=== PATIENT | male | born 1970 | race Hispanic/Latino ===

== ENCOUNTER 2024-09-22 09:53 | Emergency (ER) | payer BC ==
[2024-09-22 10:19] LABS: Absolute Eosinophils 0.2 K/uL (0-0.5); Absolute Lymphocytes (CBC) 1.7 K/uL (0.7-4.9); Absolute Monocytes 0.5 K/uL (0.1-1.3); Basophils % 0.5 % (0-1.3); Eosinophils % 3.2 % (0-4.4); Hematocrit 45.8 % (39.6-49.0); Hemoglobin 15.3 g/dL (13.6-17.9); Lymphocytes % 23.1 % (15.3-44.8); MCH 29.4 pg (27.0-35.0); MCHC 33.5 g/dL (32.0-36.0); MPV 9.8 fL (7.6-11.3); Monocytes % 6.2 % (3.3-12.3); Platelets 184 thou/uL (152-406); RBC Red Blood Cell Count 5.21 M/uL (4.33-5.43); Red Cell Distribution Width 13.8 % (12.1-15.2)
[2024-09-22 10:21] LABS: PT Prothrombin Time 13.2 SECONDS (9.4-12.5); Protime INR 1.26
[2024-09-22 10:34] LABS: Albumin 3.5 g/dL (3.4-5.0); Albumin/Globulin Ratio 0.9 (1.1-1.8); Anion Gap 12.1 mEq/L (5.0-15.0); Bilirubin Direct 0.2 mg/dL (0-0.2); Bilirubin Indirect, Calculated 0.3 mg/dL (0.2-0.8); Bilirubin Total 0.5 mg/dL (0.2-1.0); Globulin 3.8 g/dL (2.3-3.5); Potassium 4.1 mEq/L (3.5-5.1); Protein, Total 7.3 g/dL (6.4-8.2); Troponin High Sensitivity 18.7 pg/mL (<58.9)
[2024-09-22] MEDS ORDERED: ASPIRIN 81 MG CHEWABLE TABLET ONE (10:55)
--- NOTE | 2024-09-22 11:29 | RAD REPORT ---
EXAMINATION: ONE VIEW CHEST XR CLINICAL INDICATION: Male, 54 years old.,CHEST PAIN TECHNIQUE: Frontal chest projection is submitted. Examination is limited by patient positioning and t echnique. COMPARISON: No prior exam. FINDINGS: The lungs are well inflated and clear. No pneumothorax or sizable effusion. The heart is upper limit of normal in size. Mediastinal contours are within normal, with changes of prior CABG. IMPRESSION: No acute pulmonary abnormalities. Upper limit of normal size of the heart, with changes of prior CABG .
--- NOTE | 2024-09-22 13:18 | ER ---
Nurse's Notes [facility] Name: Brain Villavicencio Age: 54 yrs Sex: Male : 1970 Arrival Date: 09/22/2024 Time: 09:53 Bed 8 Private MD: Diagnosis: Chest pain, unspecified Presentation: 09/22 09:58 Coronavirus screen: At this time, the client does not indicate any symptoms associated aa5 with coronavirus-19. Ebola Screen: Patient denies travel to an Ebola-affected area in the 21 days before illness onset. Initial Sepsis Screen: Does the patient meet any 2 criteria? No. Patient's initial sepsis screen is negative. Does the patient have a suspected source of infection? No. Patient's initial sepsis screen is negative. Risk Assessment: Do you want to hurt yourself or someone else? Patient reports no desire to harm self or others. Onset of symptoms was September 21, 2024. 09:58 Acuity: JOSEFINA 2 aa5 09:58 Method Of Arrival: Wheelchair aa5 09:58 Chief complaint: Patient states: mid-sternal chest pain that began last night, aa5 describes as numbing pain. Historical: - Allergies: 10:00 No Known Allergies; aa5 - PMHx: 10:00 Diabetes mellitus; aa5 - PSHx: 10:00 CABG 2022; heart stents; aa5 - Immunization history:: Adult Immunizations unknown. - Infectious Disease History:: Denies. - Social history:: Smoking status: Patient denies any tobacco usage or history of. - Family history:: not pertinent. - Hospitalizations: : No recent hospitalization is reported. Screenin:00 [facility] ED Fall Risk Assessment (Adult) History of falling in the last 3 months, aa5 including since admission No falls in past 3 months (0 pts) Confusion or Disorientation No (0 pts) Intoxicated or Sedated No (0 pts) Impaired Gait No (0 pts) Mobility Assist Device Used No (0 pt) Altered Elimination No (0 pt) Score/Fall Risk Level 0 - 2 = Low Risk Oriented to surroundings, Maintained a safe environment, Educated pt \\T\\ family on fall prevention, incl call for assistance when getting out of bed. Abuse screen: Denies threats or abuse. Nutritional screening: No deficits noted. Tuberculosis screening: No symptoms or risk factors identified. Assessment: 09:58 General: Appears uncomfortable, Behavior is calm, cooperative. Pain: Complains of pain aa5 in mid-sternal area Pain does not radiate. Pain currently is 7 out of 10 on a pain scale. Quality of pain is described as numb, Pain began "last night" Is continuous. Neuro: Level of Consciousness is awake, alert, obeys commands, Oriented to person, place, time, situation. Cardiovascular: Reports chest pain, Denies diaphoresis, fatigue, lightheadedness, nausea, palpitations, shortness of breath, syncope, vomiting, Heart tones S1 S2 present Rhythm is regular. Respiratory: Airway is patent Respiratory effort is even, unlabored, Respiratory pattern is regular, symmetrical, Denies cough, shortness of breath. GI: Abdomen is round non-distended, Patient currently denies diarrhea, intolerance of fluids, intolerance of food, nausea, vomiting. : No signs and/or symptoms were reported regarding the genitourinary system. EENT: No signs and/or symptoms were reported regarding the EENT system. Derm: Skin is pink, warm \\T\\ dry. Musculoskeletal: Range of motion: intact in all extremities. 10:50 Reassessment: MD at bedside . aa5 10:59 Reassessment: Patient is alert, oriented x 3, equal unlabored respirations, skin aa5 warm/dry/pink. Pt notified of wait time for repeat troponin, pt verbalized understanding. . 12:10 Reassessment: Patient is alert, oriented x 3, equal unlabored respirations, skin aa5 warm/dry/pink. Repeat troponin was sent to lab . 13:03 Reassessment: Patient is alert, oriented x 3, equal unlabored respirations, skin aa5 warm/dry/pink. Patient denies pain at this time. Patient states feeling better. 13:46 Reassessment: Patient is alert, oriented x 3, equal unlabored respirations, skin aa5 warm/dry/pink. Patient denies pain at this time. Patient states feeling better. 16:39 Reassessment: Patient is alert, oriented x 3, equal unlabored respirations, skin aa5 warm/dry/pink. Patient denies pain at this time. Pt sitting up in bed watching TV . 18:50 Reassessment: Patient is alert, oriented x 3, equal unlabored respirations, skin aa5 warm/dry/pink. Vital Signs: 09:58 BP 158 / 94; Pulse 66; Resp 19 S; Temp 97.6(TE); Pulse Ox 98% on R/A; Weight 87.54 kg aa5 (R); Height 5 ft. 6 in. (R); Pain 7/10; 10:58 BP 142 / 95; Pulse 85; Resp 16 S; Pulse Ox 98% on R/A; aa5 13:46 BP 136 / 85; Pulse 61; Resp 18 S; Pulse Ox 100% on R/A; aa5 16:39 BP 127 / 84; Pulse 59; Resp 18 S; Pulse Ox 100% on R/A; aa5 17:30 BP 143 / 90; Pulse 56; Resp 16 S; Pulse Ox 99% on R/A; aa5 18:15 BP 144 / 87; Pulse 55; Resp 16 S; Temp 97.5(TE); Pulse Ox 98% on R/A; aa5 09:58 Body Mass Index 31.15 (87.54 kg, 167.64 cm) aa5 09:58 Pain Scale: Adult aa5 ED Course: 09:57 Patient arrived in ED. al6 09:58 Kiersten Perez, RN is Primary Nurse. aa5 09:58 Arm band placed on. aa5 09:58 Patient has correct armband on for positive identification. Placed in gown. Bed in low aa5 position. Call light in reach. Side rails up X 1. Client placed on continuous cardiac and pulse oximetry monitoring. NIBP monitoring applied. cafeteria monitor on. Pulse ox on. NIBP on. 10:00 Chip Diggs MD is Attending Physician. rn 10:03 EKG done, by ED staff, reviewed by Chip Diggs MD. aa5 10:07 Initial lab(s) drawn, by me, sent to lab. Inserted saline lock: 18 gauge in right aa5 antecubital area, using aseptic technique. Blood collected. Flushed with 10 mL NS. 10:09 Triage completed. aa5 10:40 XRAY Chest (1 view) In Process Unspecified. EDMS 10:53 No provider procedures requiring assistance completed. Patient maintains SpO2 aa5 saturation greater than 95% on room air. 12:06 Troponin High Sensitivity: Repeat at 1207 Sent. ko1 12:06 Repeat lab(s) drawn. by me, sent to lab. ko1 13:03 EKG done, by ED staff, reviewed by Chip Diggs MD. aa5 13:20 Ubaldo Fisher is Hospitalizing Provider. rn 18:50 IV discontinued, intact, bleeding controlled, No redness/swelling at site. Pressure aa5 dressing applied. Administered Medications: 10:58 Drug: Aspirin PO Chewable Tablet 324 mg PO once; 81 mg tablets x 4 Route: PO; aa5 13:11 Follow up: Response: No adverse reaction aa5 Medication: 10:52 VIS not applicable for this client. aa5 Outcome: 13:17 Discharge ordered by MD. rn 13:21 Decision to Hospitalize by Provider. rn 17:00 Admitted to aa5 17:00 Condition: stable 17:00 Instructed on the need for admit, 18:52 Patient left the ED. aa5 Signatures: Dispatcher [employer] EDMS Chip Diggs MD MD rn Calderon, Audri RN RN aa5 Kim Sinclair RN RN ko1 Essence Hernandez6 Corrections: (The following items were deleted from the chart) 13:50 13:46 Pulse 61bpm; Resp 18bpm; Spontaneous; Pulse Ox 100% RA; aa5 aa5 19:05 18:59 IV discontinued, intact, bleeding controlled, No redness/swelling at site. aa5 Pressure dressing applied, aa5 19:18 17:00 Admitted to ER Hold. Please see [facility] for further documentation. aa5 aa5
--- NOTE | 2024-09-22 13:18 | EDPHYS ---
Physician Documentation [facility] Name: Brain Villavicencio Age: 54 yrs Sex: Male : 1970 Arrival Date: 09/22/2024 Time: 09:53 Bed 8 Private MD: ED Physician Chip Diggs HPI: 09/22 10:40 This 54 yrs old Male presents to ER via Wheelchair with complaints of Chest rn Pain. 10:40 The patient or guardian reports chest pain that is located primarily in the substernal rn area. Onset: this morning. The pain does not radiate. Associated signs and symptoms: Pertinent negatives: diaphoresis, palpitations, shortness of breath, syncope, vomiting. The chest pain is described as aching. Duration: The patient or guardian reports multiple episodes, that are intermittent. Duration: The patient or guardian reports multiple episodes, the episodes last approximately 3 minute(s). Modifying factors: The symptoms are alleviated by nothing. the symptoms are aggravated by exertion. Severity of pain: At its worst the pain was mild in the emergency department the pain has improved. The patient has experienced similar episodes in the past. Patient reports substernal chest discomfort and tingling sensation that began this morning while at work and he was walking. Patient states had a CABG in 2022 and has had stents before. States previously when required stents he had similar sensations but are lasting longer now and more frequent. No fever or chills. No cough. No shortness of breath. Not associated with diaphoresis or radiation. No abdominal pain or vomiting. Historical: - Allergies: 10:00 No Known Allergies; aa5 - PMHx: 10:00 Diabetes mellitus; aa5 - PSHx: 10:00 CABG 2022; heart stents; aa5 - Immunization history:: Adult Immunizations unknown. - Infectious Disease History:: Denies. - Social history:: Smoking status: Patient denies any tobacco usage or history of. - Family history:: not pertinent. - Hospitalizations: : No recent hospitalization is reported. ROS: 10:40 Constitutional: Negative for fever, chills, and weight loss, Cardiovascular: Positive rn for chest pain Respiratory: Negative for shortness of breath, cough, wheezing, and pleuritic chest pain, Abdomen/GI: Negative for abdominal pain, nausea, vomiting, diarrhea, and constipation, MS/Extremity: Negative for injury and deformity, Skin: Negative for injury, rash, and discoloration, Neuro: Negative for headache, weakness, numbness, tingling, and seizure, Exam: 10:40 Constitutional: This is a well developed, well nourished patient who is awake, alert, rn and in no acute distress. Cardiovascular: Regular rate and rhythm. No pulse deficits. Respiratory: No increased work of breathing, no retractions or nasal flaring. Abdomen/GI: Soft, non-tender MS/ Extremity: Pulses equal, no cyanosis Neuro: Awake and alert, GCS 15 12:06 ECG was reviewed by the Attending Physician. rn Vital Signs: 09:58 BP 158 / 94; Pulse 66; Resp 19 S; Temp 97.6(TE); Pulse Ox 98% on R/A; Weight 87.54 kg aa5 (R); Height 5 ft. 6 in. (R); Pain 7/10; 10:58 BP 142 / 95; Pulse 85; Resp 16 S; Pulse Ox 98% on R/A; aa5 13:46 BP 136 / 85; Pulse 61; Resp 18 S; Pulse Ox 100% on R/A; aa5 16:39 BP 127 / 84; Pulse 59; Resp 18 S; Pulse Ox 100% on R/A; aa5 17:30 BP 143 / 90; Pulse 56; Resp 16 S; Pulse Ox 99% on R/A; aa5 18:15 BP 144 / 87; Pulse 55; Resp 16 S; Temp 97.5(TE); Pulse Ox 98% on R/A; aa5 09:58 Body Mass Index 31.15 (87.54 kg, 167.64 cm) aa5 09:58 Pain Scale: Adult aa5 MDM: 10:00 Medical Screening Exam initiated rn 10:51 ED course: Troponin negative, no ST elevation on ECG. Recommended admission for industrial design intern evaluation given CABG and multiple stents in the past, patient declines, wants to be discharged as he wants to see his quarter doper in [place]. Patient understands risk of leaving without full Cardiologic evaluation, he plans on driving to [facility]. I did convince him however to get me a repeat troponin and repeat EKG.. 13:15 Differential diagnosis: acute myocardial infarction, acute pericarditis, anxiety, rn coronary artery disease chest wall pain, costochondritis, pleurisy, pneumothorax, stable angina, unstable angina. The patient was given aspirin in the Emergency Department. Data reviewed: vital signs, nurses notes, lab test result(s), EKG, radiologic studies, plain films, and as a result, I will admit patient. Consideration of Admission/Observation Escalation of care including admission/observation considered. Refusal of service: The patient/guardian displays adequate decision making capability and despite a detailed discussion of alternatives, benefits, risks, and consequences refuses: Admission to the hospital for further work-up and treatment. ED course: Repeat troponin negative. ECG still shows T wave inversions in 1 and aVL. Had a long talk with patient once again and he still declines admission. [place] doper asked him if he could make it down there. Patient called his nephew and is planning on driving there when discharged. Understands that this is risky and could have a cardiac event. Patient states "I will charles".. 13:19 ED course: Patient spoke with his family member and they have urged him to stay for rn evaluation. Will switch from discharge to admission now.. 09/22 10:01 Order name: Basic Metabolic Panel; Complete Time: 10:37 rn 09/22 10:01 Order name: CBC with Diff; Complete Time: 10: rn 09/22 10:01 Order name: LFT's; Complete Time: 10: rn 09/22 10:01 Order name: NT PRO-BNP; Complete Time: 10:37 rn 09/22 10:01 Order name: PT-INR; Complete Time: 10:37 rn 09/22 10:01 Order name: Troponin HS; Complete Time: 10: rn 09/22 10:51 Order name: Troponin High Sensitivity: Repeat at 1207; Complete Time: 12:36 aa5 09/22 14:58 Order name: Troponin High Sensitivity; Complete Time: 17:48 EDMS 09/22 17:30 Order name: Hemoglobin A1c EDDC 09/22 10:01 Order name: XRAY Chest (1 view); Complete Time: 11:35 rn 09/22 10:01 Order name: EKG; Complete Time: 10: rn 09/22 14:58 Order name: EKG Electrocardiogram EDDC 09/22 17:50 Order name: EKG Electrocardiogram EDDC 09/22 10:01 Order name: Cardiac monitoring; Complete Time: 10: rn 09/22 10:01 Order name: EKG - Nurse/Tech; Complete Time: 10: rn 09/22 10:01 Order name: IV Saline Lock; Complete Time: 10: rn 09/22 10:01 Order name: Labs collected and sent; Complete Time: 10: rn 09/22 10:01 Order name: O2 Per Protocol; Complete Time: 10: rn 09/22 10:01 Order name: O2 Sat Monitoring; Complete Time: 10: rn 09/22 13:11 Order name: EKG - Nurse/Tech: repeat, VO at 1255 ; Complete Time: 13:11 aa5 EC:06 Rate is 68 beats/min. Rhythm is regular. QRS [place] is Normal. [place] interval is normal. QRS rn interval is normal. QT interval is normal. No Q waves. T waves are Inverted in leads I, aVL. No ST changes noted. Clinical impression: NSR w/ Non-specific ST/T Changes. Interpreted by me. Reviewed by me. 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 Chip Diggs MD MD rn Calderon, Audri, RN RN aa5 Corrections: (The following items were deleted from the chart) 10: 10:01 BASIC METABOLIC PANEL+C.LAB.BRZ ordered. EDMS EDMS 10:01 10:01 CBC+H.LAB.BRZ ordered. EDMS EDMS 10:01 10:01 HEPATIC FUNCTION+C.LAB.BRZ ordered. EDMS EDMS 10:01 10:01 PROBNP+C.LAB.BRZ ordered. EDMS EDMS 10:01 10:01 PROTIME (+INR)+COAG.LAB.BRZ ordered. EDMS EDMS 10:01 10:01 Troponin High Sensitivity+C.LAB.BRZ ordered. EDMS EDMS 10:52 10:52 Troponin High Sensitivity+C.LAB.BRZ ordered. EDMS EDMS 13:19 13:17 Home rn rn 13: 13:17 new rn rn 13: 13:17 have improved rn rn 13: 13:17 Stable rn rn 13: 13:17 Chest pain, unspecified rn rn
--- NOTE | 2024-09-22 14:42 | P.SSS ---
Patient History Date of Service: 09/22/24 Reason for admission: chest pain History of Present Illness: Mr. Villavicencio is a 54-year-old male with a past medical history of hypertension, hyperlipidemia, and diabetes requiring a CABG one year ago in "[facility]". Intermittently since that time he has had a numb sensation around his chest over the scarring. He asked his charter bus driver about it and was told it was probably the weather. Today he had some intermittent sharp jabs to his chest along with the numbness, and it scared him, so he presented to the emergency department. Over the course of that time he has had 2 negative troponins and his pain is gone. He denies shortness of breath, nausea, vomiting, or dizziness. We will observe him for short while and repeat his troponin. If he remains chest pain-free we will discharge him home to follow-up with his charter bus driver. Allergies No Known Allergies Allergy (Unverified 09/22/24 14:36) Home medications list reviewed: No (Pt states he gets them filled at [facility]) - Past Medical/Surgical History Has patient received pneumonia vaccine in the past: No -: HTN -: HLD -: DM -: CAD -: CABG Psychosocial/ Personal History: Lives at home stop smoking several years ago, no excessive alcohol, drinks coffee. - Social History Smoking Status: Former smoker Alcohol use: Yes CD- Drugs: No Caffeine use: Yes Place of Residence: Home Review of Systems 10-point ROS is otherwise unremarkable General: Unremarkable Eyes: Unremarkable ENT: Unremarkable Respiratory: Unremarkable Cardiovascular: Other (Paresthesias over CABG incision, no chest pain at this time) Gastrointestinal: Unremarkable Genitourinary: Unremarkable Musculoskeletal: Unremarkable Integumentary: Unremarkable Neurological: Unremarkable Lymphatics: Unremarkable Physical Examination - Vital Signs Blood Pressure: 143/90 Pulse: 67 Respirations: 18 Pulse Ox (%): 99 - Physical Exam General: Alert, In no apparent distress, Oriented x3 HEENT: Atraumatic, Normocephalic, PERRLA Neck: Supple, 2+ carotid pulse no bruit Respiratory: Clear to auscultation bilaterally, Normal air movement Cardiovascular: Normal pulses, Regular rate/rhythm, Normal S1 S2 Capillary refill: <2 Seconds Gastrointestinal: Normal bowel sounds, Hypoactive, Soft and benign Musculoskeletal: No clubbing, No swelling Integumentary: No rashes, No breakdown Neurological: Normal speech, Normal tone, Normal affect Lymphatics: No axilla or inguinal lymphadenopathy External genitalia: Deferred Rectal: Deferred Other Physical/Emotional Findings: denies chest pain, shortness of breath, nausea, dizziness - Studies Laboratory Data (last 24 hrs) 09/22/24 09/22/24 09/22/24 10:07 10:07 10:07 WBC 7.50 Hgb 15.3 Hct 45.8 Plt Count 184 PT 13.2 H INR 1.26 Sodium 136 Potassium 4.1 BUN 9 Creatinine 0.94 Glucose 215 H Total Bilirubin 0.5 AST 12 L ALT 21 Alkaline Phosphatase 88 Treatment Summary: Chest pain Patient admitted with chest pain. Pain is 0 /10. Patient denies nausea, vomiting, diaphoresis, shortness of breath, diarrhea 1. Serial troponins and EKG 2. Home medications as directed 3. Heart Healthy diet Will dishcarge home with instructions to f/u with his Nurse Staff Industrial if next troponin and EKG are unchanged. - Disposition Discharge Date: 09/22/24 Disposition: ROUTINE DISCHARGE Condition: GOOD Followup: LIZ HILL [Primary Care Provider] - Prvt As Needed Patient Discharge Instructions: Please continue home medications, follow up with PCP in one week, cardiology in one to two weeks. Return to ED immediately for worsening of symptoms, concerns, or problems. Diet: AHA Activity: Ad erickson Physician Review Additional Text: 12 lead EKGs x 3 unchanged Critical Care: No
[2024-09-22] MEDS ORDERED: ACETAMINOPHEN 500 MG TAB PO PRN (14:53)
[2024-09-22 18:04] VITALS: BP 143/90
[2024-09-23 02:12] VITALS: TEMP 97.6
[2024-09-23 02:28] VITALS: O2SAT 100
== END 2024-09-22 18:50 | disposition home or self-care (01) ==
LOC: ER 09:53
DX: R07.9 Chest pain, unspecified (principal); I10 Essential (primary) hypertension; E78.5 Hyperlipidemia, unspecified; E11.9 Type 2 diabetes mellitus without complications; Z95.1 Presence of aortocoronary bypass graft; Z95.818 Presence of other cardiac implants and grafts
CPT/HCPCS: 36415; 71045; 80048; 80076; 83880; 84484; 85025; 85610; 93005; 99285